=== PATIENT | female | born 1985 | race Caucasian/White ===

== ENCOUNTER 2016-10-25 18:06 | Emergency (ER) | payer OTHER ==
[~2016-10-25] VITALS: Ht 170.2 cm; Wt 98.0 kg
[~2016-10-25 18:06] MED LIST: NORE0.3520 PO
[2016-10-25 18:26] VITALS: BP 131/87; PULSE 68; RESP 16; O2SAT 100
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
[2016-10-25 20:23] VITALS: BP 116/73; PULSE 72; RESP 17; O2SAT 98
== END 2016-10-25 20:23 | disposition home or self-care (01) ==
LOC: SED 18:06
DX: O9A.213 Injury, poisoning and certain other consequences of external causes complicating pregnancy, third trimester (principal); S16.1XXA Strain of muscle, fascia and tendon at neck level, initial encounter; S39.012A Strain of muscle, fascia and tendon of lower back, initial encounter; V43.52XA Car driver injured in collision with other type car in traffic accident, initial encounter; Y92.410 Unspecified street and highway as the place of occurrence of the external cause; Y93.89 Activity, other specified; Y99.8 Other external cause status; O99.89 Other specified diseases and conditions complicating pregnancy, childbirth and the puerperium; R51 Headache; R10.2 Pelvic and perineal pain; O99.613 Diseases of the digestive system complicating pregnancy, third trimester; K08.89 Other specified disorders of teeth and supporting structures; Z3A.37 37 weeks gestation of pregnancy; Z88.6 Allergy status to analgesic agent

== ENCOUNTER 2016-11-08 01:13 | Inpatient (IN) | payer OTHER ==
[~2016-11-08] VITALS: Ht 170.2 cm; Wt 98.9 kg
[2016-11-08] MEDS ORDERED: Lactated Ringer's 1,000 ML IV PRN (08:02)
[2016-11-08] MEDS ORDERED: Sodium Chloride LOK Flush 10 mL Syringe IVFLUSH PRN (08:05)
[2016-11-08] MEDS ORDERED: Methylergonovine 0.2 mg/mL Inj IM PRN ×2 (08:05→17:15)
[2016-11-08] MEDS ORDERED: Carboprost 250 mCg/mL Inj IM PRN ×2 (08:05→17:15)
[2016-11-08] MEDS ORDERED: Ondansetron 2 mg/mL 2 mL Inj IVPUSH PRN ×2 (08:05→12:40)
[2016-11-08] MEDS ORDERED: Hemorrhage Kit, Post Partum XX ONE ×2 (08:05→17:15)
[2016-11-08] MEDS ORDERED: fentaNYL-PF 50 mCg/mL 2 mL Inj IVPUSH PRN (08:05)
[2016-11-08] MEDS ORDERED: Oxytocin 30 Units/500 mL LR 30 UNITS in IV Premix 1 EACH IV PRN ×3 (08:05→17:15)
[2016-11-08] MEDS ORDERED: Oxytocin 10 Unit/mL Inj IM PRN ×2 (08:05→17:15)
[2016-11-08 08:13] LABS: Mean Corpuscular Hemoglobin 27.6 pg (27.0-35.0); Mean Corpuscular Volume 83.9 fL (81-100)
[2016-11-08] MEDS ORDERED: ACET325C PO (08:39)
[2016-11-08] MEDS ORDERED: DIPH25CA6 PO (08:39)
[2016-11-08] MEDS ORDERED: PREN-12 PO (08:39)
[2016-11-08] MEDS: Lactated Ringer's 1,000 ML IV SCH ×2 (09:23→16:06)
[2016-11-08] MEDS ORDERED: Lactated Ringer's 500 ML IV ONE (12:38)
[2016-11-08] MEDS ORDERED: Lactated Ringer's 1,000 ML IV SCH ×2 (12:38→17:15)
[2016-11-08] MEDS ORDERED: EPHEDrine Sulfate 50 mg/mL Inj IVPUSH PRN (12:40)
[2016-11-08] MEDS ORDERED: Atropine 1 mg/10 mL (Code) Syringe IVPUSH PRN (12:40)
[2016-11-08] MEDS ORDERED: fentaNYL 2 mCg/mL-Bupiv 0.125% 100 ML EPIDURAL SCH (12:40)
--- NOTE | 2016-11-08 13:20 | PCM.HPANE ---
Patient Data Date of Service: Nov 08, 2016 Surgeon Admitting Provider:Terrence Yanez MD Attending Provider:Terrence Yanez MD Primary Care Physician:Terrence Yanez MD Other Provider: Reason for Visit Induction INDUCTION Ht/WT & BMI Height (Centimeters): 170 Weight (Kilograms): 98.8 Body Mass Index 34.1 Allergies Coded Allergies: ibuprofen (Unverified Adverse Reaction, Mild, Bruising, 02/02/15) Past Anesthesia History Anesthesia History: Denies:: Abnormal Airway, Difficult Intubation Diabetes History Hx Diabetes?: No MRSA MRSA: No Medications Hypertension Medication: No Home Meds Incl Beta Mayda: No Reported Medications Vit W-Ca,Fe,FA(<1 mg) ( Formula)1 Each Tablet1 Each PO 11/08/16 diphenhydrAMINE HCl (Benadryl)25 Mg [id number] Mg PO HS PRN Ref 2 11/08/16 Acetaminophen 325 Mg [id number] Mg PO 11/08/16 Norethindrone 0.35 Mg Tablet0.35 Mg PO 12/15/15 History History of ENT Problems?: No HEENT History: Denies:: Abnormal Airway Denture Type: None Teeth Condition: Within Normal Limits Hx of Heart Problems?: No Cardiovascular History: Positive for:: Heart Murmur Denies:: Congestive Heart Failure Hypertension Hx of Respiratory Problem?: No Respiratory History: Denies:: Tuberculosis Hx Neurologic Problems?: No Hx of GI Problems?: No Hx of Problems?: No HX of Peritoneal Dialysis: No Female Hx: Positive for:: Currently Hx Musculoskeletal Problems?: No Hx of Psycho/Social Problems?: Yes Psycho Social History: Positive for:: Anxiety Hx Surgeries?: No Hx Any Other Health Problems?: No Hx Diabetes: No Hx Alcohol Use: Yes (OCCASIONAL)Hx Substance Use: No Smoking Status: Never Smoker Have You Smoked inLast 12 mo: No Stop/Bang Treated for Sleep Apnea?: No Do You Have a CPAP Machine?: No ARI Risk Assessment: Low Risk, <3 Yes Risk Assessment Category Category 1A: Patient has history of documented sleep apnea, and HAS NOT received any narcotic, sedative or anesthesia administration during this stay. Category 1B: Patient has history of documented sleep apnea, and HAS received any narcotic , sedative or anesthesia administration during this stay Category 2: Patient has SUSPECTED Obstructive Sleep Apnea, and HAS received any narcotic , sedative or anesthesia administration during this stay. Category 3: Patient has SUSPECTED Obstructive Sleep Apnea and HAS NOT received narcotic, sedative or anesthesia administration during this stay. Category 4: Outpatient in Procedural Areas with known sleep apnea or who screen positive for High Risk via the STOP/BANG questionnaire. Exam Exam General Appearance: Alert, Oriented X3, Cooperative HEENT/AIRWAY: Neck Movement, Mouth Opening (Wide) Lungs: Clear to Auscultation, Normal Air Movement Heart: Regular Rate/Rhythm, Normal S2 Meds/Labs/Diagnostics Admission Meds Current Medications Lactated Ringer's (Lr) 1,000 ml @ 125 mls/hr Q8H IV Last administered on t 09:23; Start 11/08/16 at 08:06 Labs Test 11/08/16 07:25 White Blood Count 6.7th/mm3 (3.8-10.1) Red Blood Count 4.35mil/mm3 (3.90-5.20) Hemoglobin 12.0g/dL (12.0-15.6) Hematocrit 36.5% (35.0-46.0) Mean Corpuscular Volume 83.9fL (81-100) Mean Corpuscular Hemoglobin 27.6pg (27.0-35.0) Mean Corpuscular Hemoglobin Concent 32.9% (32.0-37.0) Red Cell Distribution Width 14.5% (12.3-15.4) Platelet Count 160bil/L (150-400) Plan Impression Patient chart reviewed, patient interviewed and anesthestic plan with risks, benefits, and alternatives discussed, and informed consent obtained. NPO per Anesth. Guidelines: No (OB) ASA Physical Status: ASA2 Mod Systemic Disease Anesthetic Plan: Epidural Bene/Risks/Altern/Consents: Yes HP Complete Prior to Induction: Yes Thomas Isaacs MD Nov 08, 2016 12:39
[2016-11-08] MEDS ORDERED: Sodium Chloride LOK Flush 10 mL Syringe IVFLUSH SCH (16:30)
[2016-11-08] MEDS ORDERED: TdaP Vaccine 0.5 mL Inj IM ONE (17:15)
[2016-11-08] MEDS ORDERED: LANOlin HPA 7 Gm Ointment TOPICAL PRN (17:15)
[2016-11-08] MEDS ORDERED: Benzocaine (Dermoplast) 20% 60 Gm Spray TOPICAL PRN (17:15)
[2016-11-08] MEDS ORDERED: Measles-Mumps-Rubella Vaccine 0.5 mL Inj SUBQ ONE (17:15)
[2016-11-08] MEDS ORDERED: Witch Hazel-Glycerin Pads TOPICAL PRN (17:15)
[2016-11-08] MEDS ORDERED: Influenza (Adult) Vaccine 0.5 mL Syringe IM ONE (17:15)
--- NOTE | 2016-11-08 18:22 | PCM.ANEP1 ---
Post Anesthesia PACU Phase 1 Assessment Date of Service: Nov 08, 2016 Vital Signs See OB documentation Anesthetic Administered: Epidural Level of Alertness: Awake, talking CABRERA's with Equal Strength: Yes Pain: No Nausea or Vomiting: No CV Function & Hydration Stable: Yes Airway Device: Oxygen Delivery: Room Air Lungs: Normal Air Movement PACU Phase 2 Assessment Complications: No Follow up Care: N/A Patient Instructions Provided: N/A Thomas Isaacs MD Nov 08, 2016 18:22
[2016-11-08] MEDS: HYDROcodone-APAP 5-325 mg Tablet PO PRN (20:58)
[2016-11-09] MEDS: HYDROcodone-APAP 5-325 mg Tablet PO PRN ×4 (00:59→14:15)
[2016-11-09 06:33] LABS: Mean Corpuscular Hemoglobin 27.7 pg (27.0-35.0); Mean Corpuscular Volume 84.6 fL (81-100)
--- NOTE | 2016-11-09 06:47 | PROG NOTE ---
[address] [address] PROGRESS NOTE PATIENT: RENUKA WESTBROOK : 1985 MR#: [id number] ADMIT: 11/08/2016 JOB ID: [id number] DATE: 11/08/2016, at 1700 hours [facility] NOTE: The patient was admitted to [facility] on the morning of November 08, 2016, for labor induction. Pitocin therapy was initiated, artificial rupture of membranes accomplished, and clear fluid recovered. Cervix was in the 4 cm range. Uterine contractions became stronger and frequent, and epidural was requested and provided. Labor then subsequently progressed until the patient was completely dilated, and she labored down briefly. heart tracing demonstrated some variables noted on arrival. She was told that she was completely dilated, and in fact, the head was noted to be at +3 station, near . The patient was allowed to push, and she did extremely well, and brought the head down further, although actual introitus opening for delivery was very small, and the patient was at significant risk for a "blowout," inclusive of multiple significant lacerations involving perineum, and potentially worse, labia and periurethral/periclitoral areas. I thus discussed with the patient, and then accomplished a medium-size midline episiotomy in an effort to avoid excessive other lacerations. The head then promptly delivered after the smaller introitus obstruction had been resolved, and this was directly followed by delivery of the shoulders, body, and extremities. Active and crying baby was handed to mother, and umbilical cord was clamped and cut after 1 minute. Cord blood was then obtained for routine studies. While I waited for the placenta deliver, Betadine solution was used to cleanse the vulvovaginal region, and the perineal body was then closed with 2-0 and 3-0 chromic suture in deep, and then more superficial running layers. Hemostasis was noted to be complete, and there was no hematoma. Note that there was no buttonhole or any other type of fourth degree, or even third degree laceration. Rectal examination was confirmatory. Placenta ultimately delivered spontaneously, intact. Then gentle digital check inside the uterine cavity did not demonstrate any obvious additional membranes or placenta. Bleeding was reasonable, having slowed down as uterine contracted well with massage plus intravenous Pitocin infusion. Blood loss was in the 300 cc range. It certainly is anticipated that mother and baby will do very well during the timeframe. Baby was active, crying, and vigorous. Instrument, needle, and sponge counts were found to be correct.
--- NOTE | 2016-11-09 07:06 | HP ---
[address] [address] HISTORY AND PHYSICAL PATIENT: RENUKA WESTBROOK : 1985 MR#: [id number] ADMIT: 11/08/2016 JOB ID: [id number] DATE: 11/08/2016, at 0800 hours [facility] NOTE: The patient is a 31-year-old, G2, P1, AB 0, woman, followed prenatally at [facility]. See record for details. She previously had experienced one vaginal delivery of a 7 pound 15 ounce baby, with difficult delivery involving seven hours of pushing, then vacuum, then fourth degree buttonhole laceration, per her report. She has been concerned regarding vaginal delivery with this second , and thought about a section for a time. However, the baby, on recent ultrasound, has looked on the smaller side, and she decided to give labor and vaginal delivery an effort. Note that recent ultrasound demonstrated estimated weight in the 25th percentile, and head on the smaller side, although after conversation with poultry buyer, biparietal diameter was consistent with smaller estimated weight in general. I shared these findings with the chainstitch binder on the morning of admission, and had something to assess when baby measurements were taken, although I have no specific concerns regarding microcephaly. The patient and I have discussed and agreed to labor induction at 39 weeks of gestation, in light of very favorable cervix, potential developing small for gestational age, yet also wanting to avoid any excessive growth in light of prior difficult vaginal delivery, as described. The patient understood the pros, cons, benefits, risks, and techniques of labor induction, and she signed informed consent. PHYSICAL EXAMINATION: Physical examination on admission. Last height and weight in the office 67 inches and 217 pounds. Last blood pressure 124/80. Neck: No thyromegaly. Lungs are clear to auscultation and percussion. Heart: Regular in rate and rhythm. Abdomen: Last fundal height in the office 35.5 cm. Positive heartbeat. Vertex presentation. Cervical exam on admission: 3.5 to tight 4 cm dilatation, 50% to 60% effacement, -1 to -2 station. Vertex presentation. Bag of water intact. IMPRESSION: 1. A 39 week with admission for labor induction. 2. Potential developing small for gestational age on the basis of estimated weight in the 25th percentile, head measurements at 11th percentile or less, and with small fundal height. On the other hand, note appropriate abdominal circumference growth and normal amniotic fluid volume. 3. Increased weight, although no gestational diabetes. 4. Mild anemia earlier in : Given iron supplement to use, along with vitamin and dietary iron intake. 5. Negative group B Streptococcus status, Rh positive status, rubella immune. 6. History of heart murmur, although not detected during . 7. Surgical history: a. Reproductive history--first --40 week vaginal delivery of 7 pound 15 ounce baby, epidural, pushed for seven hours, vacuum, episiotomy and fourth degree laceration (reported buttonhole fourth). Second --current. b. Knee surgery. c. Possible orthopedic procedure for dislocated tailbone in 2016, following prior difficult delivery (uncertain details). 8. IBUPROFEN intolerance--causes her to bruise reportedly (details?). 9. Family history of hypertension, Parkinson's (grandfather), multiple sclerosis (grandmother), some type of reproductive cancer (grandfather), and multiple colon cancer (uncle). PLAN: The patient will be for admission on November 08, 2016, in setting up a 39 week , with potential for developing small for gestational age, history of traumatic vaginal . Pitocin therapy to be initiated in an effort to deliver.
--- NOTE | 2016-11-09 18:16 | PCM.DIOB ---
Obstetrical Disch Instruction Dates of Hospitalization Date of Hospital Admission Nov 08, 2016 at 06:50 Providers Admitting Physician: Terrence Yanez MD Primary Care Physician: Terrence Yanez MD Attending Physician: Terrence Yanez MD Discharge Diagnosis Problems: (1) Vaginal delivery Onset Date: 02/02/2015 Status: Acute ICD Code: O80 (2) Onset Date: 02/02/2015 Status: Acute ICD Code: Z33.1 Diet Discharge Diet: No restrictions Activity Discharge Activity-General: Pelvic Rest for 6 weeks Dressing and Incisional Care Hygiene: May shower Follow Up Plan Follow-up appointment: Weeks (Follow up in 6 weeks for appointment with Dr. Yanez.) Call your provider for: Fever or Chills, Shortness of breath, Heavy vaginal bleeding, Red painful breasts Terrence Yanez MD Nov 09, 2016 18:16
[2016-11-09] MEDS ORDERED: OXYC1TAB24 PO (18:23)
[2016-11-09] MEDS ORDERED: DOCU-41 PO (18:23)
--- NOTE | 2016-11-10 00:33 | PROG NOTE ---
[address] [address] PROGRESS NOTE PATIENT: RENUKA WESTBROOK : 1985 MR#: [id number] ADMIT: 11/08/2016 JOB ID: [id number] [facility] NOTE/ DAY ONE: DATE: 11/09/2016 at 2355 hours The patient underwent vaginal delivery on November 08, 2016. She has been handling baby well, ambulating, voiding, and eating. Vital signs are stable, she has remained afebrile, and bleeding has been okay. The patient has had significant discomfort in the perineal region and also in the area of the hemorrhoid and nursing staff has been working with her medication to try to control the discomfort optimally. She cannot use ibuprofen, and note that Vicodin was switched to Percocet and then plain oxycodone in that acetaminophen maximum was reached over a 24-hour period. It is anticipated that Percocet is probably what she will go home with, to use one or two every 4 hours p.r.n. pain. We will see how she does overnight. Anticipating discharge to home tomorrow, i.e. on the second day. The patient has not felt comfortable going home today in light of the discomfort as well as she is concerned over the baby's suboptimal eating pattern. PLAN: 1. Continue care. 2. Continue to work with oral pain medication. Try to more optimally handle the patient's pain that involves perineum, hemorrhoid, and uterine cramping. 3. Chief Nurse will continue to follow baby's feeding pattern and weight and bilirubin. IONA
[2016-11-10] MEDS: oxyCODONE-Acetamin 5-325 mg Tablet PO PRN ×3 (01:47→08:48)
--- NOTE | 2016-11-10 09:08 | PCM.DIOB ---
Obstetrical Disch Instruction Dates of Hospitalization Date of Hospital Admission Nov 08, 2016 at 06:50 Providers Admitting Physician: Terrence Yanez MD Primary Care Physician: eTrrence Yanez MD Attending Physician: Terrence Yanez MD Discharge Diagnosis Problems: (1) Vaginal delivery Onset Date: 02/02/2015 Status: Acute ICD Code: O80 (2) Onset Date: 02/02/2015 Status: Acute ICD Code: Z33.1 Diet Discharge Diet: No restrictions Activity Discharge Activity-General: Pelvic Rest for 6 weeks Dressing and Incisional Care Hygiene: May shower Follow Up Plan Follow-up appointment: Weeks (Follow up in 6 weeks for appointment with Dr. Yanez.) Call your provider for: Fever or Chills, Shortness of breath, Heavy vaginal bleeding, Red painful breasts Terrence Yanez MD Nov 10, 2016 09:08
[2016-11-10] MEDS ORDERED: OXYC5TAB72 PO (09:27)
[2016-11-10 09:46] VITALS: BP 109/66; PULSE 76; RESP 20
--- NOTE | 2016-11-10 18:13 | DIS ---
[address] [address] DISCHARGE SUMMARY PATIENT: RENUKA WESTBROOK : 1985 MR#: [id number] ADMIT: 11/08/2016 JOB ID: [id number] DIS: 11/10/2016 DISCHARGE DIAGNOSIS: Term , delivered. PROCEDURES PERFORMED DURING HOSPITAL STAY: 1. Labor induction. 2. Epidural anesthesia. 3. Vaginal delivery. 4. Perineal repair. HOSPITAL COURSE: This patient was admitted to [facility] on November 08, 2016, for labor induction at 39 weeks of gestation. There was potential for developing small for gestational age status and even microcephaly, although the latter was felt to be less likely. With a favorable cervix, labor induction seemed prudent. Note also that with history of very difficult vaginal with 7 hours of pushing and vacuum assistance and tailbone injury and 4th degree buttonhole laceration, there was also interest in delivering the baby at an earlier point in an effort to have a smaller baby to avoid vulvovaginal trauma and increase the likelihood of vaginal , if possible. Ultimately, with labor induction efforts on November 08, 2016, vaginal delivery occurred. During the timeframe, the patient did well, with stable vitals, afebrile, with reasonable bleeding, ambulating and voiding, without leg pain or shortness of breath, and handling baby well. Note that the patient did have various significant pain, bleeding, uterine cramping, perineal discomfort were there was repair, and also hemorrhoid discomfort. She requested staying until the 2nd day, i.e. November 10, 2016, before discharge, and her request was granted. She was feeling better on pain medications and getting around easier. Note also that the patient just before coming into the hospital for induction had experienced some morning cough with greenish sputum for a day or two, but not the rest of the day. On the first day, the patient actually experienced more in the way of productive cough, and also some greenish nasal discharge throughout the day, although no fever, facial pain or tenderness, or shortness of breath. 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 Lungs are clear to auscultation and percussion. A viral process is most likely, although antibiotics will be on hand as mentioned if needed. The patient then requested discharge to home on the 2nd day, and her request was granted. DISCHARGE PROGRAM: The patient will call p.r.n., yet otherwise she will follow up at six weeks for checkup at [facility]. She will observe pelvic rest for six weeks. DISCHARGE MEDICATIONS: Include oxycodone 5 mg, take one or two every 4 hours p.r.n. pain, Colace 100 mg p.o. b.i.d., and a Z-Heron will also be picked up if needed if any type of progressive respiratory symptoms develop indicating a bacterial process. The patient will also use vitamins daily while nursing.
--- NOTE | 2016-11-12 11:45 | PATH ---
SURGICAL PATHOLOGY Attending Physician:Terrence Yanez M.D CASE STATUS: Signed Out PATIENT NAME: RENUKA WESTBROOK PID: [id number] : 1985 DATE COLLECTED:11/08/2016 00:00 SPECIMEN: Placenta CLINICAL HISTORY: DEVELOPING SMALL FOR GESTATIONAL AGE? 1). PLACENTA FINAL DIAGNOSIS: 1.PLACENTA: FLEMING PLACENTA WITH SMALL PLACENTAL SIZE (LESS THAN 10TH PERCENTILE FOR 39 WEEKS GESTATION) AND ACUTE CHORIOAMNIONITIS, MILD. ICD10 O43.8 O41.1 GROSS DESCRIPTION: The specimen is received in formalin, labeled with the patient's name and consists of an intact placenta and includes placental disc (410 g, 25.0 x 13.0 x 2.7 cm), umbilical cord (length-27.8 cm, diameter-1.7 x 1.5 cm) and membranes. The membranes are ruptured 5.2 cm from the free edge of the placenta and are semi-translucent. The umbilical cord has a furcate insertion 4.0 cm from the edge of the placenta and contains 3 vessels. The surface is smooth and shiny with no evidence of meconium. The maternal surface is dark maroon with normal cotyledon formation. The placental disc is spongy with no hematomas, infarcts, nodules, masses, or lesions identified. Section code: (A) edge of placenta with membranes, (B) umbilical cord; (C-E) placenta, 3 full thickness sections. 11/10/16 JM MICRO DESCRIPTION: See diagnosis. ICD-9 CODES: CPT CODES: 1: 35248 Electronically Signed Out Luz Whelan MD [facility] [address], [place] [address] Technical component performed at [facility], [facility] [address], [place], [address]
== END 2016-11-10 14:38 | disposition home or self-care (01) | DRG 775 ==
LOC: FBC 06:50
PROVIDERS: ADMIT Obstetrics & Gynecology; ATTEND Obstetrics & Gynecology
PROC: 10E0XZZ Delivery of Products of Conception, External Approach (ICD-10-PCS; principal; 2016-11-08)
PROC: 10907ZC Drainage of Amniotic Fluid, Therapeutic from Products of Conception, Via Natural or Artificial Opening (ICD-10-PCS; 2016-11-08)
PROC: 0W8NXZZ Division of Female Perineum, External Approach (ICD-10-PCS; 2016-11-08)
PROC: 3E033VJ Introduction of Other Hormone into Peripheral Vein, Percutaneous Approach (ICD-10-PCS; 2016-11-08)
DX: O80 Encounter for full-term uncomplicated delivery (principal); Z3A.39 39 weeks gestation of pregnancy; Z37.0 Single live birth

== ENCOUNTER 2016-12-23 16:48 | Emergency (ER) | payer OTHER ==
[~2016-12-23] VITALS: Ht 170.2 cm; Wt 89.5 kg
[~2016-12-23 16:48] MED LIST changes: +DOCU-41 PO; -NORE0.3520 PO; +OXYC-530 PO; +PREN-12 PO
[2016-12-23 16:53] VITALS: BP 142/90; PULSE 86; RESP 12; O2SAT 100
--- NOTE | 2016-12-23 18:07 | ED.REPORT ---
HPI-Extremity Problem Upper Date of Service Dec 23, 2016 ED Provider: Dewayne,Ed History of Present Illness: Right thumb laceration from a mandolin just GAMEMASTER. Bleeding is controlled. It is very painful. Tetanus is up to date. Nursing Notes Stated Complaint: CUT ON RT HAND Chief Complaint: Extremity Trauma Allergies: Coded Allergies: ibuprofen (Unverified Adverse Reaction, Mild, Bruising, 02/02/15) Scheduled Docusate Sodium (Colace) 100 Mg Capsule 100 MG PO BID Scheduled PRN oxyCODONE (oxyCODONE) 5 Mg Tablet 1-2 MG PO Q4H PRN PRN For Moderate Pain Miscellaneous Medications Vit W-Ca,Fe,FA(<1 mg) ( Formula) 1 Each Tablet 1 EACH PO General Time Seen by MD: 18:02 Chief Complaint Finger injury right 1 Hx Obtained From: Patient Arrived By: Walk-in Onset Occurred: Just prior to arrival Symptom Duration: Since onset Caused by: Accidental Context: Occurred at: Home injury Location: : Finger right 1 Severity: Current: Moderate Severity: Maximum: Severe Pertinent Negative: Pt denies other symptoms Immunizations: All up to date Similar Sx Previous: No Past Medical History Past Medical History Notes: denies NO PCP Past Medical History none reported denies prior bleeding disorders Past Surgical History none reported Smoking History Never Smoker Social History Currently Alcohol Use: "Social" Drug Use: Denies drug use Other Social History: Ambulatory Status Independent Review of Systems Review of Systems Note: R thumb lac Musculoskeletal: Reports: Extremity pain Complete sys rev & neg: except as marked. Physical Exam Initial Vital Signs Vital Signs (First) Date Time Temp Pulse Resp B/P Pulse Ox O2 Delivery O2 Flow Rate FiO2 12/23/16 16:53 36.8 86 12 142/90 100 Room Air Initial VS: Reviewed, Vital signs normal General/Constitutional: Well-developed, Well-nourished Head / Eyes: Atraumatic, Normocephalic, PERRL ENT: Mucous membranes moist, Conjunctiva normal, No scleral icterus Skin: Warm, Dry, No cyanosis Neurologic: Alert, Oriented, Nonfocal Psychiatric: Mood/affect normal, Behavior normal, Normal thought content 1.5 cm laceration to the pad of her right thumb bleeding is controlled. The skin is still present and adhered to thumb. Procedures Digital Nerve Block Procedure Performed by: Allied health pract Indication: Finger laceration repair Consent / Setup / Site Prep: Informed consent provided, Consent from patient Skin Preparation Agent: Shurclens Digit Involved: Thumb right Digital Block Procedure: Lidocaine 1% Post-Procedure / Complications: No complications Laceration Management Procedure Performed by: Allied health pract Consent / Setup / Site Prep: Informed consent provided, Consent from patient Location of Wound: steri strips applied, bulky bandage Wound Length: 1 cm Local Anesthesia: Lidocaine 1% Digital Block: Yes Digit Involved: Thumb right Wound Preparation: Shurclens Irrigation: 50 cc Re-Eval/Medical Decision Med Decision/Clinical Course Claims patient wound with wound cleanser and normal saline. Flap was adhered to thumb. No sutures needed. Bleeding is controlled. We will Steri-Strip and give bulky bandage. Discharge & Departure Shift Change Sign-Out Procedures: Results discussed Response to Therapy: Improved Impression: Primary Impression: Laceration of thumb Encounter type: initial encounter Laterality: right Qualified Code: S61.011A - Laceration without foreign body of right thumb without damage to nail , initial encounter Disposition: Home Discharge Condition All VS Reviewed: Yes Patient Instructions: Acute Wound Care (ED) Additional Instructions: Wear bulky bandaging keep clean and dry for 24 hours. Then change her bandage once or twice a day as needed and way her fingertip protector. Do not soak until wound heals, or at least 4 days. Watch for signs of infection including redness, purulent drainage, increased pain or swelling and return immediately if that happens. If bleeding recurs apply pressure and ice. Referrals: NOPCP (PCP) [facility] Provider for APC: Yair Camacho MD, Linnea K ARNP Dec 23, 2016 18:07
[2016-12-23 20:13] VITALS: BP 106/67; PULSE 50; RESP 16; O2SAT 98
== END 2016-12-23 20:15 | disposition home or self-care (01) ==
LOC: SED 16:48
DX: S61.011A Laceration without foreign body of right thumb without damage to nail, initial encounter (principal); W26.8XXA Contact with other sharp object(s), not elsewhere classified, initial encounter; Y93.9 Activity, unspecified; Y92.009 Unspecified place in unspecified non-institutional (private) residence as the place of occurrence of the external cause; Y99.8 Other external cause status; Z88.6 Allergy status to analgesic agent